=== PATIENT | male | born 1955 | race Two or more races ===

== ENCOUNTER 2022-04-02 10:20 | Outpatient (CLI) | payer MEDICARE, OTHER ==
[2022-04-02] MEDS ORDERED: LIDOCAINE SOLN 4% 50 ML BOTTLE ONE (10:45)
[2022-04-02] MEDS ORDERED: UREA 10% -AHA 4% CREAM 57 GM TUBE ONE (11:36)
== END 2022-04-02 23:59 | disposition home health service (06) ==
LOC: WOU 10:20
PROVIDERS: ATTEND Podiatrist Foot & Ankle Surgery
DX: I87.313 Chronic venous hypertension (idiopathic) with ulcer of bilateral lower extremity (principal); L97.822 Non-pressure chronic ulcer of other part of left lower leg with fat layer exposed; L97.812 Non-pressure chronic ulcer of other part of right lower leg with fat layer exposed; I89.0 Lymphedema, not elsewhere classified; I82.502 Chronic embolism and thrombosis of unspecified deep veins of left lower extremity
CPT/HCPCS: 29581; 87077; 87075 ×2; 87070 ×2; 87186; 36415; 84134; 82306; A6197; A6207; 29580